=== PATIENT | male | born 1995 | race Hispanic/Latino ===

== ENCOUNTER → 2017-09-25 | Outpatient (CLI) | payer OTHER ==
--- NOTE | 2017-09-25 13:36 | Diagnostic Imaging Report ---
PROCEDURE:THORACIC SPINE 2VW COMPARISON:None. INDICATIONS:UPPER BACK PAIN, LEFT SHOULDER PAIN FINDINGS: 2 views of the thoracic spine (AP and lateral). Mild disc space narrowing at T11-T12 and T12-L1. Vertebral body heights and disc spaces are otherwise maintained. No fracture or malalignment. CONCLUSION: No acute radiographic abnormality of the thoracic spine. Dictated by: Perry Robles M.D. on 09/25/2017 at 13:38 Electronically approved by: Perry Robles M.D. on 09/25/2017 at 13:38
== END | disposition home or self-care (01) ==
LOC: RAD 12:12
PROVIDERS: ATTEND Family Medicine
DX: M54.6 Pain in thoracic spine (principal)
CPT/HCPCS: 72070